=== PATIENT | female | born 1990 | race Caucasian/White ===

== ENCOUNTER 2018-07-06 09:39 | Emergency (ER) | payer OTHER ==
[2018-07-06 10:27] LABS: URINE BLOOD (Dip) POC Trace-intact (NEGATIVE); URINE GLUCOSE (Dip) POC Negative (NEGATIVE); URINE KETONES (Dip) POC Negative (NEGATIVE); URINE LEUKOCYTE EST (Dip) POC Trace (NEGATIVE); URINE NITRITE (Dip) POC Negative (NEGATIVE); URINE TOTAL PROTEIN POC 1+ (NEGATIVE)
[2018-07-06] MEDS: KETOROLAC 60 MG INJ IM (10:42)
== END 2018-07-06 10:50 | disposition home or self-care (01) ==
LOC: FTE 09:39
DX: M25.512 Pain in left shoulder (principal)
CPT/HCPCS: 81003; 81025; 96372; 99284-25